=== PATIENT | female | born 1970 | race Caucasian/White ===

== ENCOUNTER 2020-12-11 16:59 | Emergency (ER) | payer SELFPAY ==
[~2020-12-11] VITALS: Ht 157.5 cm; Wt 54.9 kg
[2020-12-11] MEDS ORDERED: SODIUM CHLORIDE 0.9% 1000ML 1,000 ML IV STA (17:50)
[2020-12-11] MEDS ORDERED: KETOROLAC TROMETHAMINE 30 MG/ML VIAL IV STA (17:50)
[2020-12-11] MEDS ORDERED: ONDANSETRON HCL INJ 2MG/ML 2ML 2 MG/ML VIAL IV STA (17:50)
[2020-12-11] MEDS ORDERED: SODIUM CHLORIDE 0.9% 1000ML 1,000 ML ONE (18:32)
[2020-12-11] MEDS ORDERED: FIORICET 50-301 EACH PO (20:45)
[2020-12-11] MEDS ORDERED: ZOFRAN4 MG SL (20:45)
[2020-12-11 20:59] VITALS: BP 119/54
== END 2020-12-11 21:00 | disposition home or self-care (01) ==
LOC: FSED 17:50
DX: R51.9 Headache, unspecified (principal); R11.10 Vomiting, unspecified
CPT/HCPCS: 70450; 74176; 80053; 85025; 96374; 96376; 99284; J1885; J2405; J7030